=== PATIENT | female | born 1950 | race Caucasian/White ===

== ENCOUNTER 2016-06-03 07:30 | Day surgery (SDC) | payer MEDICARE, OTHER ==
[~2016-06-03] VITALS: Ht 165.1 cm; Wt 120.2 kg
--- NOTE | 2016-06-03 07:26 | PCM.HPANE ---
Patient Data Surgeon Admitting Provider: Attending Provider:Herrera Tavares MD Primary Care Physician:Harriett Dodd PA-C Other Provider:[facility] Reason for Visit Colon Polyp Ht/WT & BMI Body Mass Index Allergies Coded Allergies: No Known Allergies (Unverified , 06/01/16) Medications Reported Medications Cholecalciferol (Vitamin D3) (Vitamin D3)2,000 Unit Capsule2,000 Unit PO DAILY 06/01/16 Multivitamin (Multivitamins)1 Each Capsule1 Each PO DAILY 06/01/16 Losartan Potassium 50 Mg [id number] Mg PO DAILY 06/01/16 Discontinued Reported Medications Albuterol HFA (Proair HFA)8.5 Gm Hfa.aer.ad2 Puffs INHALATION Q4H PRN For Shortness of Breath #1 INHALER 06/01/16 Guaifenesin/Codeine Phosphate (Codeine-Guaifen 10-100 mg/5 ml)120 Ml [id number] Ml PO QID PRN For Cough 06/01/16 Stop/Bang Risk Assessment Category Category 1A: Patient has history of documented sleep apnea, and HAS NOT received any narcotic, sedative or anesthesia administration during this stay. Category 1B: Patient has history of documented sleep apnea, and HAS received any narcotic , sedative or anesthesia administration during this stay Category 2: Patient has SUSPECTED Obstructive Sleep Apnea, and HAS received any narcotic , sedative or anesthesia administration during this stay. Category 3: Patient has SUSPECTED Obstructive Sleep Apnea and HAS NOT received narcotic, sedative or anesthesia administration during this stay. Category 4: Outpatient in Procedural Areas with known sleep apnea or who screen positive for High Risk via the STOP/BANG questionnaire. Exam Exam General Appearance: Alert, Oriented X3, Cooperative, No Acute Distress HEENT/AIRWAY: MP 2 Lungs: Clear to Auscultation, Normal Air Movement Heart: Exam Unremarkable, Regular Rate/Rhythm, No Murmurs/Rubs/Gallops Plan Impression Patient chart reviewed, patient interviewed and anesthestic plan with risks, benefits, and alternatives discussed, and informed consent obtained. ASA Physical Status: ASA2 Mod Systemic Disease Anesthetic Plan: MAC Bene/Risks/Altern/Consents: Yes HP Complete Prior to Induction: Yes Zbigniew Rodriguez MD Jun 03, 2016 07:26
[~2016-06-03 07:30] MED LIST: ALBU8.5H2 INHALATION; CHOL200047 PO; GUAI120L57 PO; LOSA50TA37 PO; Lactated Ringer's 1,000 ML IV ONE; MULT1CAP33 PO
[2016-06-03] MEDS ORDERED: fentaNYL-PF 50 mCg/mL 2 mL Inj ONE (07:31)
[2016-06-03] MEDS ORDERED: Propofol 10,000 mCg/mL 20 mL Inj ONE ×2 (07:31)
[2016-06-03 08:14] VITALS: BP 128/81; PULSE 72; RESP 14; O2SAT 98
--- NOTE | 2016-06-03 09:05 | PCM.ANEP1 ---
Post Anesthesia Phase 1 PACU Phase 1 Assessment Vital Signs Vital Signs Date Time Temp Pulse Resp B/P Pulse Ox O2 Delivery O2 Flow Rate FiO2 06/03/16 08:14 72 14 128/81 98 Room Air Anesthetic Administered: MAC Level of Alertness: Awake, talking CASTRO's with Equal Strength: Yes Pain: No Nausea or Vomiting: No Oxygen Delivery: Nasal Cannula Lungs: Clear to Auscultation, Normal Air Movement Zbigniew Rodriguez MD Jun 03, 2016 09:05
[2016-06-03 09:09] VITALS: BP 93/53; PULSE 74; RESP 16; O2SAT 95
[2016-06-03] MEDS ORDERED: Lactated Ringer's 1,000 ML IV SCH (09:09)
--- NOTE | 2016-06-03 09:09 | PCM.ENDCOL ---
Colonoscopy Date of Service: Jun 03, 2016 Physician Herrera Tavares MD Pre Procedure Diagnosis: Screening Post Procedure Dx & Findings: Polyps hemorrhoid diverticuli Procedure Colonoscopy Prep adequate Withdrawal 15 min PROCEDURE IN DETAIL: After unremarkable rectal examination the Olympus video colonoscope was inserted into patient's anal canal and was advanced to cecum. Landmarks are identified including the ileocecal valve and appendiceal orifice. Scope was withdrawn systematically. The mucosa of the cecum, ascending, transverse, descending, sigmoid, rectal mucosa lined with whitish, pink, smooth, glistening, normal-appearing mucosa, normal fine branching, underlying vascularity, normal haustra. The patient tolerated procedure and was transported to observation area. In the ascending colon there was a 3 mm polyp which was removed completely using cold snare. In the transverse colon there was a 2 mm polyp which was removed completely using cold snare and there was a 1 mm polyp which was removed completely using cold forceps. In the descending colon there was a 3 mm polyp which was removed completely using cold snare and 1 mm polyp which was removed completely using cold forceps. In the sigmoid colon there were two 2 mm polyps which were removed completely using cold snare. In the rectum there were three 3 mm polyps which were all removed completely using cold snare. In the sigmoid colon there were several small to medium diverticuli. In the rectum retroflexion was done which showed hemorrhoids and a canal was inspected carefully on the way out and hemorrhoids noted. Impression Polyp 10 status post complete removal Diverticuli Hemorrhoids Recommendation The colonoscopy in one year if they all comes back as adenomatous. Diverticular diet Presedation Assessment Risks and Benefits Informed consent was obtained from the patient after all risks and benefits including but not limited to drug reaction, infection, pain, bleeding, perforation, as well as alternatives were discussed. Patient monitoring Continuous pulse oximetry, cardiac monitoring, blood pressure monitoring, IV access, and oxygen at 2L per nasal cannula. Complications There were no periprocedural complications identified. Post Procedure Plan Post Procedure Recommendations 1. Restrict activities today. 2. Resume normal activities in the morning. 3. Resume medications. 4. Patient informed of normal post procedure side effects as bloating, drowsiness, blood streaking in the stool. 5. average risk CRCS. If colon polyps come back as: -Hyperplastic- can repeat colonoscopy in 10 years -Tubular adenoma- repeat colonoscopy in 5 years -Tubulovillous/villous adenoma- repeat colonoscopy in 3 years -If any dysplasia- return to clinic as soon as possible 6. Please don't hesitate to call me with any questions. Herrera Tavares MD Jun 03, 2016 09:09
--- NOTE | 2016-06-03 09:09 | PCM.ANEP2 ---
Post Anesthesia Evaluation ASA/CMS Post Anesthesia VS in Patient's Normal Range?: Yes Resp Stable; Airway Patent?: Yes CV Function & Hydration Stable: Yes Mental Status Recovered?: Yes Pain control Satisfactory?: Yes N/V Control Satisfactory?: Yes Zbigniew Rodriguez MD Jun 03, 2016 09:09
[2016-06-03] MEDS ORDERED: MetoCLOpramide 5 mg/mL 2 mL Inj IVPUSH PRN (09:10)
[2016-06-03] MEDS ORDERED: Ondansetron 2 mg/mL 2 mL Inj IVPUSH PRN (09:10)
[2016-06-03 09:17] VITALS: BP 118/91; PULSE 73; RESP 16; O2SAT 94
[2016-06-03 09:23] VITALS: BP 121/74; PULSE 77; RESP 16; O2SAT 97
--- NOTE | 2016-06-04 14:32 | PATH ---
SURGICAL PATHOLOGY Attending Physician:Herrera Tavares M.D. 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 2.TRANSVERSE COLON POLYPS: TUBULAR ADENOMA INVOLVING BOTH BIOPSY FRAGMENTS. 3.DESCENDING COLON POLYPS: HYPERPLASTIC POLYPS INVOLVING TWO BIOPSY FRAGMENTS. 4.SIGMOID COLON POLYPS: HYPERPLASTIC POLYP INVOLVING SINGLE BIOPSY FRAGMENT. 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 ICD10 CODE D12.2 GROSS DESCRIPTION: The specimen is received in five formalin filled containers labeled with the patient's name. 1). The specimen is sublabeled "ascending colon polyp" and consists of 2 portions of tissue which aggregate to 0.3 x 0.3 x 0.2 CM. The specimen is entirely submitted in cassette 1A. 2). The specimen is sublabeled "transverse colon polyps" and consists of 2 portions of tissue which aggregate to 0.4 x 0.3 x 0.2 CM. The specimen is entirely submitted in cassette 2A. 3). The specimen is sublabeled "descending colon polyps" and consists of 3 portions of tissue which aggregate to 0.4 x 0.4 x 0.3 CM. The specimen is entirely submitted in cassette 3A. 4). The specimen is sublabeled "sigmoid colon polyps" and consists of 2 portions of tissue which aggregate to 0.4 x 0.4 x 0.4 CM. The specimen is entirely submitted in cassette 4A. 5). The specimen is sublabeled "rectal polyps" and consists of 3 portions of tissue which aggregate to 0.4 x 0.4 x 0.3 CM. The specimen is entirely submitted in cassette 5A. 06/03/2016 DAC MICRO DESCRIPTION: See diagnosis. ICD-9 CODES: CPT CODES: 1: 23176 2: 58986 3: 08209 4: 11319 5: 42962 Electronically Signed Out Chaitanya Gonzalez MD [facility] [address], [place] [address] Technical component performed at [facility], [address], [place], [address]
== END 2016-06-03 23:59 | disposition home or self-care (01) ==
LOC: END 07:30
PROVIDERS: ATTEND Internal Medicine
DX: Z12.11 Encounter for screening for malignant neoplasm of colon (principal); Z86.010 Personal history of colon polyps; Z80.0 Family history of malignant neoplasm of digestive organs; D12.2 Benign neoplasm of ascending colon; D12.3 Benign neoplasm of transverse colon; D12.8 Benign neoplasm of rectum; K63.5 Polyp of colon; K57.30 Diverticulosis of large intestine without perforation or abscess without bleeding; K64.9 Unspecified hemorrhoids; I10 Essential (primary) hypertension; E66.9 Obesity, unspecified; E78.5 Hyperlipidemia, unspecified; E78.00 Pure hypercholesterolemia, unspecified; F10.20 Alcohol dependence, uncomplicated; Z68.41 Body mass index [BMI] 40.0-44.9, adult
CPT/HCPCS: 45380; 45385; 88305; J2250; J3010; J7120